=== PATIENT | male | born 1935 | race Caucasian/White ===

== ENCOUNTER → 2017-03-02 | Outpatient (CLI) | payer BC | END | disposition home or self-care (01) | LOC: C.LABSPEC 14:39 | PROVIDERS: ATTEND Urology | DX: D49.4 Neoplasm of unspecified behavior of bladder (principal); R31.29 Other microscopic hematuria ==

== ENCOUNTER 2017-05-02 07:50 | Day surgery (SDC) | payer OTHER, BC ==
[2017-04-17 13:09] VITALS: BMI 29.0
--- NOTE | 2017-04-17 13:51 | PAT Medication Instructions ---
Service Date Apr 17, 2017. Current Home Medication List Acetaminophen (Tylenol), 1,000 MG PO PRN Allopurinol (Zyloprim), 100 MG PO QAM Amlodipine (Norvasc), 5 MG PO BID Aspirin (Aspirin Ec), 81 MG PO 3XWEEK Carvedilol (Coreg), 25 MG PO BID Enalapril (Vasotec), 5 MG PO BID Furosemide (Lasix), 40 MG PO QAM Gabapentin (Neurontin), 300 MG PO BID Multivitamin (Multivitamin), 1 TAB PO QAM Simvastatin (Zocor), 10 MG PO QAM Warfarin Sod (Jantoven), 2.5-5 MG PO QPM [Vitamin D], 1 TAB PO NOON Medication Instructions For Your Scheduled Surgery - Continue as directed: Aspirin (Aspirin Ec), 81 MG PO 3XWEEK (okay to continue per surgeon) - Hold the following medications 4 days prior to surgery per Cardiology instructions: Warfarin Sod (Jantoven), 2.5-5 MG PO QPM - Hold the following medications 24 hours prior to surgery: Enalapril (Vasotec), 5 MG PO BID - Hold the following medications the morning of surgery: Multivitamin (Multivitamin), 1 TAB PO QAM [Vitamin D], 1 TAB PO NOON Furosemide (Lasix), 40 MG PO QAM - Take the following medications the morning of surgery with a sip of water OTHERWISE NOTHING TO EAT OR DRINK AFTER MIDNIGHT: Amlodipine (Norvasc), 5 MG PO BID Carvedilol (Coreg), 25 MG PO BID Gabapentin (Neurontin), 300 MG PO BID Simvastatin (Zocor), 10 MG PO QAM Allopurinol (Zyloprim), 100 MG PO QAM Acetaminophen (Tylenol), 1,000 MG PO PRN (may take if needed up to 4 hours prior to surgery) - Take the following medications as scheduled the night before surgery: Amlodipine (Norvasc), 5 MG PO BID Carvedilol (Coreg), 25 MG PO BID Gabapentin (Neurontin), 300 MG PO BID Acetaminophen (Tylenol), 1,000 MG PO PRN If you have any questions please call us at [phone] or [phone] or [phone]
--- NOTE | 2017-04-17 14:21 | DIAGNOSTIC IMAGING REPORT ---
CHEST 2 VIEWS ROUTINE CLINICAL HISTORY: Preoperative chest COMPARISON STUDY: No previous studies for comparison. FINDINGS: The heart is mildly enlarged. 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 There is an unused the left subclavian pacer lead. There is no failure. There is no focal pulmonary consolidation. There are no pleural effusions. There is evidence for prior abdominal aortic stenting.[ IMPRESSION: No active disease in the chest. Electronically signed by: Greg Klein M.D. 04/17/2017 2:20 PM Dictated Date/Time: 04/17/2017 2:19 PM
[2017-04-17 14:34] LABS: BASO % 0.3 %; BASO ABS # 0.02 K/uL (0-0.2); EOS % 3.8 %; EOS ABS # 0.26 K/uL (0-0.5); HEMATOCRIT 41.9 % (42-52); HEMOGLOBIN 14.5 g/dL (14.0-18.0); IG# 0.03 K/uL (0.00-0.02); LYMPH % 23.3 %; LYMPH ABS # 1.61 K/uL (1.2-3.4); MEAN CELL VOLUME 90.5 fL (80-100); MEAN CORPUSCULAR HEMOGLOBIN 31.3 pg (25-34); MEAN CORPUSCULAR HGB CONC 34.6 g/dl (32-36); MEAN PLATELET VOLUME 9.8 fL (7.4-10.4); MONO % 6.4 %; MONO ABS # 0.44 K/uL (0.11-0.59); NEUT % 65.8 %; NEUT ABS # 4.56 K/uL (1.4-6.5); PLATELET COUNT 135 K/uL (130-400); RED CELL DISTRIBUTION WIDTH SD 45.6 fL (36.4-46.3); WHITE BLOOD COUNT 6.92 K/uL (4.8-10.8)
[2017-04-17 16:12] LABS: CALCIUM 8.9 mg/dl (8.5-10.1); CREATININE 2.68 mg/dl (0.60-1.40); POTASSIUM 4.9 mmol/L (3.5-5.1)
[~2017-05-02] VITALS: Ht 170.2 cm; Wt 86.3 kg
[~2017-05-02 07:50] MED LIST: ACET-1256 PO; ALLO100T PO; AMLO5TAB3 PO; ASPI81TA28 PO; CARV25TA PO; CIPROFLOXACIN / D5W 400 MG IV SCH; ENAL5TAB83 PO; FRS/40 PO; GABA-113 PO; MULT-506 PO; SIMV10TA2 PO; SODIUM CHLORIDE 0.9% 1000ML 1,000 ML IV SCH; VITAMIN D PO; WARF2.5T8 PO
[2017-05-02 08:23] VITALS: BP 144/69; PULSE 67; TEMP 36.7; O2SAT 96; Ht 170.2 cm; Wt 86.3 kg
[2017-05-02 08:41] LABS: INR 1.1 (0.9-1.1); PTT PATIENT 31.2 SECONDS (21.0-31.0)
[2017-05-02 08:51] LABS: CALCIUM 8.6 mg/dl (8.5-10.1); CREATININE 2.89 mg/dl (0.60-1.40); POTASSIUM 4.4 mmol/L (3.5-5.1)
[2017-05-02] MEDS ORDERED: FENTANYL CITRATE INJ 50 MCG/1 ML 2 ML VIAL ONE (09:04)
--- NOTE | 2017-05-02 09:18 | History & Physical Bridge Note ---
H&P Re-Evaluation Bridge Note: I have examined the patient, reviewed the History & Physical and in the interval since the performance of the History & Physical I have noted the following changes of clinical significance: No changes noted
--- NOTE | 2017-05-02 09:33 | History and Physical ---
History & Physical Date May 02, 2017. History of Present Illness The patient is a 82 year old male with complaints of hematuria and bladder tumor. Tumor identified on in-office cysto. Chronically anticoagulated on Coumadin - has held this for several days in preparation for the procedure. Prior anesthesia and cards eval. Additional History Hepatic Disease: No Endocrine Disorder: No Kidney Disease: No Hypertension: Yes Heart Disease: Yes Bleeding Tendencies: Yes Infectious Diseases: No Allergies Coded Allergies: No Known Allergies (Unverified , 05/02/17) Home Medications Scheduled Acetaminophen (Tylenol), 1,000 MG PO PRN Allopurinol (Zyloprim), 100 MG PO QAM Amlodipine (Norvasc), 5 MG PO BID Aspirin (Aspirin Ec), 81 MG PO 3XWEEK Carvedilol (Coreg), 25 MG PO BID Enalapril (Vasotec), 5 MG PO BID Furosemide (Lasix), 40 MG PO QAM Gabapentin (Neurontin), 300 MG PO BID Multivitamin (Multivitamin), 1 TAB PO QAM Simvastatin (Zocor), 10 MG PO QAM Warfarin Sod (Jantoven), 2.5-5 MG PO QPM [Vitamin D], 1 TAB PO NOON Physical Examination Skin: warm/dry Eyes: normal inspection ENT: normal ENT inspection Head: normocephalic Neck: supple Respiratory/Chest: normal breath sounds Cardiovascular: no edema Abdomen / GI: normal bowel sounds Back: normal inspection Extremities: normal inspection Genitourinary - Male: normal male genitalia Neurologic/Psych: no motor/sensory deficits, alert, oriented x 3 Diagnosis Bladder tumor Plan of Treatment Cystoscopy; TURBT
[2017-05-02] MEDS ORDERED: CIPR-255 PO (09:39)
[2017-05-02] MEDS ORDERED: PHEN95TA14 PO (09:39)
--- NOTE | 2017-05-02 09:40 | Discharge Instructions ---
Discharge Instructions Date of Service May 02, 2017. Admission Reason for Admission: Bladder Tumor Discharge Discharge Diagnosis / Problem: Bladder tumor Discharge Goals Goal(s): Decrease discomfort, Improve function, Increase independence, Improve disease control Activity Recommendations Activity Limitations: resume your previous activity Lifting Limitations: none Exercise/Sports Limitations: none May Resume Sexual Activity: when tolerated Shower/Bathe: no limitations Driving or Machine Use: resume 1 day after discharge . Instructions / Follow-Up Instructions / Follow-Up Please keep your previously scheduled follow up appointment with Dr. Ny Current Hospital Diet Patient's current hospital diet: Discharge Diet Recommended Diet: Regular Diet Pending Studies Studies pending at discharge: no Medical Emergencies . Who to Call and When: Medical Emergencies: If at any time you feel your situation is an emergency, please call [phone] immediately. . Non-Emergent Contact Non-Emergency issues call your: Urologist Call Non-Emergent contact if: you have a fever, temperature is above 101.5, your pain is not controlled, your pain is worsening . . "Provider Documentation" section prepared by Stevie New. . VTE Core Measure Inpt VTE Proph given/why not?: Treatment not indicated
[2017-05-02] MEDS ORDERED: PROPOFOL IV EMULSION 10 MG/ML 20 ML VIAL IV ONE (09:59)
[2017-05-02] MEDS ORDERED: LIDOCAINE HCL 2% 2 ML VIAL (20MG/ML) ONE (09:59)
[2017-05-02] MEDS ORDERED: EpHEDrine SULFATE 50MG/5ML SYR ONE (09:59)
[2017-05-02] MEDS ORDERED: DEXAMETHASONE SOD INJ 4 MG/ML VIAL ONE (09:59)
[2017-05-02] MEDS ORDERED: ONDANSETRON INJ 2 MG/ML 2 ML VIAL ONE (09:59)
[2017-05-02] MEDS ORDERED: SODIUM CHLORIDE 0.9% 1000ML 1,000 ML IV SCH (10:04)
--- NOTE | 2017-05-02 10:09 | [facility] Operative Report ---
Operative Report Operative Date May 02, 2017. Pre-Operative Diagnosis Bladder Tumor Post-Operative Diagnosis same as pre-operative Procedure(s) Performed Cystoscopy, Transurethral Resection Bladder Tumor (Medium) Surgeon Dr. Nate Ny Marble Setter Surgeon(s) none Estimated Blood Loss none Findings papillary appearing bladder tumor arising from the posterior bladder wall, immediately adjacent to the left UO and trigone. Second, much smaller tumor on the lateral aspect of the UO (Left) Specimens Specimen A: Bladder Tumor Anesthesia Gen Complication(s) None Disposition Recovery Room / PACU (stable) Indications bladder tumor Description of Procedure The patient was identified and consents reviewed in the preoperative holding area. Appropriate general anesthesia and ciprofloxacin for induced upon arrival in the operative suite. He was placed in dorsal lithotomy position and sterilely prepped and draped in standard fashion. I began the case by passing a 24 Sami resectoscope with 30 lens and visual obturator. Inspection of the urethra revealed no evidence of stricture disease, he has a small nonobstructive prostate. The bladder inspection was carried out utilizing both a 30 and 70 lens. Inspection revealed a papillary appearing bladder tumor arising from the posterior bladder wall immediately behind the trigone and just medial to the left ureteral orifice. There additionally was a very small papillary tumor just lateral to the left UO and separate from the main tumor. I exchanged the visual obturator for resecting loop and carefully resected both tumors entirely. Specimens were irrigated out of the bladder and the base of the resection sites fulgurated. There was excellent hemostasis. Repeat inspection of the bladder was carried out confirming no other visible tumors. I subsequently decompressed the bladder and concluded the case. He was extubated and taken to the PACU in stable condition. I attest to the content of the Intraoperative Record and any orders documented therein. Any exceptions are noted below.
[2017-05-02] MEDS ORDERED: HYDROCODONE/ACETAMIN 5/325MG TAB PO PRN ×2 (10:15)
[2017-05-02] MEDS ORDERED: PHENAZOPYRIDINE HCL 200 MG TAB PO PRN (10:15)
[2017-05-02] MEDS ORDERED: ACETAMINOPHEN 325 MG TAB PO PRN (10:15)
--- NOTE | 2017-05-02 10:36 | Anesthesiology Progress Note ---
Anesthesia Post Op Note Date & Time May 02, 2017 at 10:36 Vital Signs Pain Intensity: 0 Vital Signs Past 12 Hours Date Time Temp Pulse Resp B/P (MAP) Pulse Ox O2 Delivery O2 Flow Rate FiO2 05/02/17 10:25 63 16 133/70 95 Room Air 05/02/17 10:15 63 16 138/71 100 Oxymask 10 05/02/17 10:08 36.2 63 16 129/63 100 Oxymask 10 05/02/17 08:23 36.7 67 20 144/69 (94) 96 Room Air Notes Mental Status: alert / awake / arousable, participated in evaluation Pt Amnestic to Procedure: Yes Nausea / Vomiting: adequately controlled Pain: adequately controlled Airway Patency, RR, SpO2: stable & adequate BP & HR: stable & adequate Hydration State: stable & adequate Anesthetic Complications: no major complications apparent
[2017-05-02] MEDS ORDERED: ATROPINE SULFATE 0.1 MG/ML 5ML SYR IV PRN (10:45)
[2017-05-02] MEDS ORDERED: EpHEDrine SULFATE INJ 50 MG/ML AMP IV PRN (10:45)
[2017-05-02 10:50] VITALS: BP 126/74; PULSE 76; TEMP 36.4; O2SAT 95
[2017-05-02 11:20] VITALS: BP 126/74; PULSE 65; O2SAT 98
[2017-05-02 11:40] VITALS: BP 135/77; PULSE 67; TEMP 36.4; O2SAT 95
== END 2017-05-02 11:40 | disposition home or self-care (01) ==
LOC: C.ACU 07:50
PROVIDERS: ATTEND Urology
DX: C67.9 Malignant neoplasm of bladder, unspecified (principal); I25.10 Atherosclerotic heart disease of native coronary artery without angina pectoris; I10 Essential (primary) hypertension; M19.90 Unspecified osteoarthritis, unspecified site; Z79.82 Long term (current) use of aspirin; Z79.01 Long term (current) use of anticoagulants

== ENCOUNTER → 2017-12-01 | Outpatient (CLI) | payer OTHER, BC ==
[~2017-12-01] MED LIST changes: +CIPR-255 PO; -CIPROFLOXACIN / D5W 400 MG IV SCH; +PHEN95TA14 PO; -SODIUM CHLORIDE 0.9% 1000ML 1,000 ML IV SCH
[2017-12-01 12:51] LABS: HEMATOCRIT 40.5 % (42-52); HEMOGLOBIN 13.7 g/dL (14.0-18.0)
[2017-12-01 13:30] LABS: ALBUMIN 3.4 gm/dl (3.4-5.0); ALKALINE PHOSPHATASE 72 U/L (45-117); ALT/SGPT 17 U/L (12-78); AST/SGOT 15 U/L (15-37); BLOOD UREA NITROGEN 18 mg/dl (7-18); CALCIUM 8.7 mg/dl (8.5-10.1); CARBON DIOXIDE 29 mmol/L (21-32); CREATININE 1.98 mg/dl (0.60-1.40); GLUCOSE 107 mg/dl (70-99); POTASSIUM 3.2 mmol/L (3.5-5.1); SODIUM 142 mmol/L (136-145); TOTAL PROTEIN 7.1 gm/dl (6.4-8.2)
[2017-12-01 14:06] LABS: CREATININE RANDOM URINE 95.5 mg/dl
== END | disposition home or self-care (01) ==
LOC: C.LABPBG 07:24
PROVIDERS: ATTEND Internal Medicine Nephrology
DX: E78.5 Hyperlipidemia, unspecified (principal); I12.9 Hypertensive chronic kidney disease with stage 1 through stage 4 chronic kidney disease, or unspecified chronic kidney disease; N18.4 Chronic kidney disease, stage 4 (severe); Z79.899 Other long term (current) drug therapy